=== PATIENT | female | born 1990 ===

== ENCOUNTER 2018-06-15 19:55 | Emergency (ER) | payer SELFPAY ==
[2018-06-15 20:29] VITALS: TEMP 98.6; O2SAT 99
--- NOTE | 2018-06-15 21:07 | ED PDOC ---
Arrival/HPI - General Historian: Patient - History of Present Illness Narrative History of Present Illness (Text): 06/15/18 21:09 27 y/o female, no pmh, nkda, LMP 04/18/2018 , nkda, c/o suprapubic cramp with urinary frequency x 2 days with no fall or trauma. Pt. stated that she has burning urinary sensation with frequency x 2 days, not sure if she if and never had test or sonogram, no fever or chills, no nausea or vomiting, no abdominal pain, eating and drinking well, no change in appetize, last bowel movement was today, no vaginal bleeding or discharge, no palpitation, no other medical or psychological complaints. <Germain Baez - Last Filed: 06/15/18 23:57> <Rui Echevarria - Last Filed: 06/16/18 00:17> - General Chief Complaint: Abdominal Pain Time Seen by Provider: 06/15/18 21:02 Past Medical History - Provider Review Nursing Documentation Reviewed: Yes - Psychiatric Hx Psychophysiologic Disorder: No Hx Substance Use: No <Germain Baez - Last Filed: 06/15/18 23:57> Family/Social History - Physician Review Nursing Documentation Reviewed: Yes Family/Social History: Unknown Family HX Smoking Status: Never Smoked Hx Alcohol Use: No Hx Substance Use: No <Germain Baez - Last Filed: 06/15/18 23:57> Allergies/Home Meds <Germain Baez - Last Filed: 06/15/18 23:57> <Rui Echevarria - Last Filed: 06/16/18 00:17> Allergies/Adverse Reactions: Allergies No Known Allergies Allergy (Verified 06/15/18 20:30) Review of Systems - Review of Systems Constitutional: absent: Fatigue, Fevers Eyes: absent: Vision Changes ENT: absent: Hearing Changes Respiratory: absent: SOB, Cough Cardiovascular: absent: Chest Pain Gastrointestinal: absent: Abdominal Pain, Diarrhea, Nausea, Vomiting Genitourinary Female: Frequency, Other (+suprapubic pain). absent: Dysuria, Hematuria Musculoskeletal: absent: Arthralgias, Back Pain, Neck Pain Skin: absent: Rash, Pruritis, Skin Lesions Neurological: absent: Headache, Dizziness Hemo/Lymphatic: absent: Adenopathy Psychiatric: absent: Anxiety, Depression, Suicidal Ideation <Germain Baez - Last Filed: 06/15/18 23:57> Physical Exam Vital Signs Reviewed: Yes Vital Signs Temp Pulse Resp BP Pulse Ox 06/15/18 20:28 98.6 F 85 16 113/74 99 Temperature: Afebrile Blood Pressure: Normal Pulse: Regular Respiratory Rate: Normal Appearance: Positive for: Well-Appearing, Non-Toxic, Comfortable Pain Distress: Mild Mental Status: Positive for: Alert and Oriented X 3 - Systems Exam Head: Present: Atraumatic, Normocephalic Pupils: Present: PERRL Extroacular Muscles: Present: EOMI Conjunctiva: Present: Normal Mouth: Present: Moist Mucous Membranes Neck: Present: Normal Range of Motion Respiratory/Chest: Present: Clear to Auscultation, Good Air Exchange. No: Respiratory Distress, Accessory Muscle Use Cardiovascular: Present: Regular Rate and Rhythm, Normal S1, S2. No: Murmurs Abdomen: Present: Normal Bowel Sounds, Other (+ abdomen). No: Tenderness, Distention, Peritoneal Signs, Rebound, Guarding, McBurney's Point Tender, Rovsing's Sign Present, Hernias Genitourinary/Pelvic Exam: Present: Normal External Genitalia, Cervical os Closed, Other (Female Tourist Information Assistant ER Staff Lynda Rubalcava). No: Vaginal Discharge, Vaginal Bleeding, Vaginal Lesions, Adenexal Tenderness, Adenexal Mass, Cervical Motion Tendernes, Odor Back: Present: Normal Inspection. No: CVA Tenderness, Midline Tenderness, Paraspinal Tenderness, Pain with Leg Raise, Decubitus Ulcer Upper Extremity: Present: Normal Inspection. No: Cyanosis, Edema Lower Extremity: Present: Normal Inspection. No: Edema Neurological: Present: GCS=15, CN II-XII Intact, Speech Normal, Motor Func Grossly Intact, Gait Normal, Memory Normal Skin: Present: Warm, Dry, Normal Color. No: Rashes Psychiatric: Present: Alert, Oriented x 3, Normal Insight, Normal Concentration <Germain Baez - Last Filed: 06/15/18 23:57> Vital Signs Temp Pulse Resp BP Pulse Ox 06/15/18 20:28 98.6 F 85 16 113/74 99 <Rui Echevarria - Last Filed: 06/16/18 00:17> Medical Decision Making ED Course and Treatment: 06/15/18 21:11 -Labs/ua -Transvaginal sonogram -IVF and tylenol 06/15/18 23:58 -Urine hcg is positive -Transvaginal sonogram show Single live intrauterine gestation, with age of 9 weeks. -Labs show no acute findings -Beta hcg 20908 -Type and screen Blood type is: O+ -UA show +UTI, IV rocephine ordered. -Pt. feels well and no pain. -Discharge home with keflex, tylenol, stay hydrated, follow up with your own pmd and obgyn within 2 days, return to the ER for any new or worsening signs or sym ptoms. - RAD Interpretation Radiology Orders: History Pelvic cramps. Comparison None available. Findings Uterus Single Live intrauterine gestation. CRL equivalent to 8 wks/6 days gestatioin Gestational sac diameter equivalent to 9 wks/0 days gestation age (Ultrasound estimated): 9 weeks Heart rate: 170 bpm. Chrissy-gestational hemorrhage: None. Uterus measures 10.9 x 5.9 x 6.6 cm. No mass. Cervix Long measuring 3.1 cm and closed. No cervical abnormality seen. Right Ovary Measures 4.2 x 3 x 3.9 cm. No mass. Normal flow. Left Ovary Measures 2.3 x 1.9 x 2.1 cm. No mass. Normal flow. Free Fluid None. Other Findings None. Impression Single live intrauterine gestation, with age of 9 weeks. Electronically signed on Jun 15, 2018 10:50:44 PM EDT by: Afshin Kenyon M.D., ANGELA Certified By ABR & CBCCT Hypo Splasher: Radiologist <Germain Baez Q - Last Filed: 06/15/18 23:57> - Lab Interpretations Lab Results: 06/15/18 21:32 06/15/18 21:32 Lab Results 06/15/18 22:51: Blood Type Confirm O POSITIVE 06/15/18 22:04: Blood Type O POSITIVE, Antibody Screen Negative, BBK History Checked No verified bt 06/15/18 21:32: WBC 8.9, RBC 3.91, Hgb 12.3, Hct 35.9 L, MCV 91.8, MCH 31.5, MCHC 34.3, RDW 13.4, Plt Count 260, MPV 9.6, Gran % 59.4, Lymph % (Auto) 33.5, [place] % (Auto) 6.5 H, Eos % (Auto) 0.3 L, Baso % (Auto) 0.3, Gran # 5.27, Lymph # (Auto) 3.0, [place] # (Auto) 0.6, Eos # (Auto) 0.0, Baso # (Auto) 0.03 06/15/18 21:32: Beta HCG, Quant 15615.00 H 06/15/18 21:32: Sodium 134, Potassium 3.7, Chloride 100, Carbon Dioxide 22, Anion Gap 16, BUN 10, Creatinine 0.6 L, Est GFR ( Amer) > 60, Est GFR (Non-Af Amer) > 60, Random Glucose 84, Calcium 9.3, Total Bilirubin 0.6, AST 31, ALT 27, Alkaline Phosphatase 62, Total Protein 8.9 H, Albumin 4.6, Globulin 4.2, Albumin/Globulin Ratio 1.1 06/15/18 20:40: Urine Color Light yellow, Urine Appearance Sl cloudy, Urine pH 6.5, Ur Specific [place] 1.015, Urine Protein Negative, Urine Glucose (UA) Negative, Urine Ketones Negative, Urine Blood Negative, Urine Nitrate Negative, Urine Bilirubin Negative, Urine Urobilinogen 0.2, Ur Leukocyte Esterase Moderate H, Urine RBC Pending, Urine WBC Pending - RAD Interpretation Radiology Orders: 06/15/18 21:08 OB TRANSVAGINAL [US] Stat - Medication Orders Current Medication Orders: Ceftriaxone Sodium (Rocephin 1 Gram Ivpb) 1 gm in 100 mls @ 200 mls/hr IVPB STAT STA; Protocol Stop: 06/16/18 00:25 Discontinued Medications Acetaminophen (Tylenol 325mg Tab) 650 mg PO STAT STA Stop: 06/15/18 21:09 Last Admin: 06/15/18 21:45 Dose: 650 mg MAR Pain/Vitals Document 06/15/18 21:45 RD (Rec: 06/15/18 21:46 RD [id number]) Pain Reassessment Is This A Pain ReAssessment? No Sleep Is patient sleeping during reassessment? No Presence of Pain Presence of Pain Yes Location Upper or Lower Lower Pain Location Body Site Abdomen Sodium Chloride (Sodium Chloride 0.9%) 1,000 mls @ 999 mls/hr IV .Q1H1M STA Stop: 06/15/18 22:08 Last Admin: 06/15/18 21:45 Dose: 999 mls/hr eMAR Start Stop Document 06/15/18 21:45 RD (Rec: 06/15/18 21:45 RD [id number]) Intravenous Solution Start Date 06/15/18 Start Time 21:45 End Date 06/15/18 End time 22:45 Total Infusion Time 60 <Rui Echevarria - Last Filed: 06/16/18 00:17> - PA / HARP REPAIRER / Resident Statement ROSS has reviewed & agrees with the documentation as recorded. <Germain Baez - Last Filed: 06/15/18 23:57> - PA / HARP REPAIRER / Resident Statement ROSS has reviewed & agrees with the documentation as recorded. <Rui Echevarria - Last Filed: 06/16/18 00:17> Disposition/Present on Arrival - Present on Arrival Any Indicators Present on Arrival: No History of DVT/PE: No History of Uncontrolled Diabetes: No Urinary Catheter: No History of Decub. Ulcer: No History Surgical Site Infection Following: None - Disposition Have Diagnosis and Disposition been Completed?: Yes Disposition Time: 00:00 Patient Plan: Discharge <Germain Baez - Last Filed: 06/15/18 23:57> <Rui Echevarria - Last Filed: 06/16/18 00:17> - Disposition Diagnosis: , UTI (urinary tract infection) Disposition: HOME/ ROUTINE Condition: IMPROVED Additional Instructions: -Discharge home with keflex, tylenol, stay hydrated, follow up with your own pmd and obgyn within 2 days, return to the ER for any new or worsening signs or symptoms. Prescriptions: Acetaminophen [Tylenol] 2 cap PO QID PRN #30 capsule PRN Reason: Other Cephalexin [Keflex] 500 mg PO TID #21 capsule Referrals: PCP,NICOLE [Primary Care Provider] - Follow up with primary Afshin Bustillo DO [Staff Provider] - Follow up with primary [facility] [place] - Follow up with primary Forms: [employer] (Romanian), WORK NOTE
[2018-06-15] MEDS ORDERED: Sodium Chloride 0.9% 1,000 ML IV STA (21:08)
[2018-06-15 21:40] LABS: BASO # 0.03 K/mm3 (0.0-2.0); BASO % 0.3 % (0.0-3.0); EOS % 0.3 % (1.5-5.0); GRAN # 5.27 (1.4-6.5); GRAN % 59.4 % (50.0-68.0); HEMOGLOBIN 12.3 g/dL (12.0-16.0); LYMPH % 33.5 % (22.0-35.0); MEAN CELL VOLUME 91.8 fl (80.0-105.0); MEAN CORPUSCULAR HEMOGLOBIN 31.5 pg (25.0-35.0); MEAN CORPUSCULAR HGB CONC 34.3 g/dl (31.0-37.0); MEAN PLATELET VOLUME 9.6 fl (7.0-11.0); MONO # 0.6 (0.1-0.6); MONO % 6.5 % (1.0-6.0); RBC 3.91 10^6/uL (3.5-6.1); RED CELL DISTRIBUTION WIDTH 13.4 % (11.5-14.5); WHITE BLOOD COUNT 8.9 10^3/uL (4.5-11.0)
[2018-06-15 21:51] LABS: ALB/GLOB RATIO 1.1 (1.1-1.8); ALBUMIN 4.6 g/dL (3.0-4.8); ALT/SGPT 27 U/L (7-56); AST/SGOT 31 U/L (14-36); BLOOD UREA NITROGEN 10 mg/dL (7-21); CALCIUM 9.3 mg/dL (8.4-10.5); GFR NON-AFRICAN AMERICAN > 60
[2018-06-15 23:46] LABS: PH,URINE 6.5 (4.7-8.0); URINE BILIRUBIN NEGATIVE (NEGATIVE); URINE BLOOD NEGATIVE (NEGATIVE); URINE GLUCOSE (UA) NEGATIVE (NEGATIVE); URINE LEUKOCYTE ESTERASE MODERATE Leu/uL (NEGATIVE); URINE PROTEIN NEGATIVE mg/dL (<30 mg/dL); URINE UROBILINOGEN 0.2 E.U./dL (<1 E.U./dL)
[2018-06-15 23:55] LABS: URINE APPEARANCE SL CLOUDY (CLEAR); URINE COLOR LIGHT YELLOW (YELLOW)
[2018-06-15] MEDS ORDERED: cefTRIAXone 1 gm 1 GM/100 ML BAG IVPB STA (23:56)
[2018-06-16 00:28] LABS: URINE BACTERIA MOD (NEG)
[2018-06-16 02:36] VITALS: BP 122/74; PULSE 80; RESP 18
--- NOTE | 2018-06-16 06:11 | US ---
Date of service: 06/15/2018 PROCEDURE: OB Pelvic Ultrasound HISTORY: , pelvic cramp COMPARISON: None available. FINDINGS: UTERUS: Single live intrauterine gestation. CRL measures 2.1 cm equivalent to 8 weeks and 6 days of gestational age. Gestational sac diameter measures 3.7 cm equivalent to 9 weeks and 0 days of gestational age. age (Ultrasound estimated): 9 weeks and 0 day Date of delivery (Ultrasound estimated) : 01/18/2019 Heart rate: 170 bpm. Chrissy-gestational hemorrhage: None. Uterus measures 10.9 x 5.9 x 6.6 cm. No mass CERVIX: Long and closed. No cervical abnormality seen. RIGHT OVARY: Measures 4.2 x 3.0 x 3.9 cm. No mass. Normal flow. LEFT OVARY: Measures 2.3 x 1.9 x 2.1 cm. No mass. Normal flow. FREE FLUID: None. OTHER FINDINGS: None. IMPRESSION: Single live intrauterine gestation with mean gestational age of 9 weeks and 0 day. The estimated date of delivery by ultrasound is 01/18/2019. The ultrasound dates correspond with the clinical dates. A preliminary report was provided by [employer].
== END 2018-06-16 00:50 | disposition home or self-care (01) ==
LOC: ED 19:55
DX: O23.41 Unspecified infection of urinary tract in pregnancy, first trimester (principal); Z3A.09 9 weeks gestation of pregnancy
CPT/HCPCS: 76817; 80053; 81001; 84702; 85025; 86850; 86900; 87086; 96361; 96365; 99283; J0696; J7030